=== PATIENT | male | born 1965 | race Caucasian/White ===

== ENCOUNTER 2018-07-24 15:10 | Emergency (ER) | payer SELFPAY ==
[2018-07-24] MEDS ORDERED: ANAPHYLAXIS KIT 1 EA ONE (15:16)
[2018-07-24] MEDS ORDERED: FAMOTIDINE(*) 20MG/50ML PREMIX 50 ML IVPB ONE (15:20)
[2018-07-24] MEDS ORDERED: NS(*) 0.9% 1000 ML BAG 1,000 ML IV ONE (15:20)
[2018-07-24] MEDS ORDERED: diphenhydrAMINE 50 MG/ML VIAL IVP ONE (15:20)
[2018-07-24] MEDS ORDERED: EPINEPHrine 0.3 MG SYR IM ONLY ONE (15:20)
[2018-07-24] MEDS ORDERED: methylPREDNIS SUCC 125 MG/2ML IVP ONE (15:20)
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
[2018-07-24] MEDS ORDERED: ALBUTEROL/IPRATROPIUM 3 ML NEB NEB ONE (15:35)
[2018-07-24 17:20] VITALS: BP 120/84
[2018-07-24] MEDS ORDERED: EPIN0.3P15 IM (17:24)
== END 2018-07-24 17:27 | disposition home or self-care (01) ==
LOC: ER 15:12
DX: T78.2XXA Anaphylactic shock, unspecified, initial encounter (principal)
CPT/HCPCS: 94640; 96361; 96365; 96372; 96375; 99284; J0171; J1200; J2930; J3490; J7030; J7620